=== PATIENT | female | born 1965 | race African-American/Black ===

== ENCOUNTER 2021-02-05 23:41 | Inpatient (IN) | payer OTHER ==
[~2021-02-05] VITALS: Ht 165.1 cm; Wt 117.9 kg
[~2021-02-05 23:41] MED LIST: ACETAMINOPHEN-1 EAC1 PO; AZITHROMYCIN 2250 MG PO; DOXYCYCLINE 10100 MG PO; FIORICET 50-321 EACH PO; FLONASE16 GM NS; KEFLEX500 MG PO; NAPROSYN500 MG PO; NOHOMEMEDICATIONS; NORCO 5-325 TA1 EACH PO; PROVENTIL IH; ULTRAM 50MG TAB50 MG PO; ZPAK PO
[2021-02-05 23:51] VITALS: BP 173/103
[2021-02-05] MEDS ORDERED: ALLOPURINOL 10100 M1 PO (23:57)
[2021-02-06 00:53] LABS: ABSOLUTE NEUTROPHILS 7.8 thou/uL (1.4-8.2); BASOPHILS 0.5 % (0.0-2.0); EOSINOPHILS 4.2 % (0.0-3.0); HEMATOCRIT 38.4 % (37.0-47.0); HEMOGLOBIN 12.3 gm/dL (12.0-15.0); LYMPHOCYTES 21.6 % (24.0-44.0); MCH 25.3 pg (26.0-34.0); MONOCYTES 8.2 % (1.0-8.0); PLATELET COUNT 281 thou/uL (150-400); POLYS 65.5 % (36.0-66.0); RBC 4.86 mil/uL (4.20-5.00); RDW 17.2 % (10.5-14.5)
[2021-02-06 01:09] LABS: ANION GAP 9 mmol/L (7-16); BUN 14 mg/dL (7-18); CALCIUM 8.9 mg/dL (8.5-10.1); CHLORIDE 107 mmol/L (98-107); CO2 25 mmol/L (21-32); CREATININE 1.2 mg/dL (0.6-1.0); GLUCOSE 145 mg/dL (74-106); POTASSIUM 3.3 mmol/L (3.5-5.1); SODIUM 141 mmol/L (136-145)
[2021-02-06 01:13] LABS: ALBUMIN 2.9 g/dL (3.4-5.0); DIRECT BILIRUBIN 0.8 mg/dL (<0.1-0.2); SGOT 208 U/L (15-37); SGPT 245 U/L (14-59); TOTAL BILIRUBIN 1.3 mg/dL (0.2-1.0); TOTAL PROTEIN 7.5 g/dL (6.4-8.2)
[2021-02-06 02:28] LABS: URINE BILIRUBIN NEGATIVE (Negative); URINE BLOOD NEGATIVE (Negative); URINE CLARITY CLEAR; URINE COLOR YELLOW; URINE GLUCOSE-RANDOM* NEGATIVE (Negative); URINE KETONES NEGATIVE (Negative); URINE NITRITE-REFLEX NEGATIVE (Negative); URINE PROTEIN (DIPSTICK) NEGATIVE (Negative); URINE SPECIFIC GRAVITY 1.025 (1.005-1.035)
[2021-02-06 02:33] LABS: URINE LEUKOCYTES-REFLEX 2+ (Negative)
[2021-02-06 02:49] LABS: LIPASE > 30000 U/L (73-393)
[2021-02-06 02:57] LABS: CASTS None Seen /LPF (None Seen); CRYSTALS None Seen /LPF (None Seen); MUCUS 0-3 Light strn/LPF (None Seen); SQUAMOUS >10 Many /LPF (0-3); URINE RBC None Seen /HPF (NONE SEEN)
[2021-02-06 05:34] LABS: CHOLESTEROL 160 mg/dL (<200); HDL CHOLESTEROL 44 mg/dL (>40); LDL CHOLESTEROL 98 mg/dL (<100); TC:HDL 3.6 Ratio (Not establshd); TRIGLYCERIDE 93 mg/dL (<150); VLDL 19 mg/dL (<40)
[2021-02-06 05:38] LABS: SERUM ASSESSMENT Clear
[2021-02-06 06:58] VITALS: BP 143/84
--- NOTE | 2021-02-06 07:18 | NUR ---
TOOK OVER CARE FROM EMERSON GONZÁLES AT THIS TIME
[2021-02-06 07:29] VITALS: BP 141/85
[2021-02-06 07:43] VITALS: BP 141/85
--- NOTE | 2021-02-06 07:49 | EKG ---
[place] [address] [facility] [place] [address] ELECTROCARDIOGRAM REPORT Name: FELIPE LAY Room #: 440-P ADM IN M.R.#: [id number] Admission: 02/06/21 Attend Phys: Brian Wolfe MD Discharge: Date of : 61 Report #: [id number] [facility] ED Test Date: 2021-02-06 Test Time: 01:00:09 Pat Name: FELIPE LAY Department: Room: 440 Gender: F Acid Painter: : 1965 Requested By: Brigette Stovall Order Number: [id number] MD: Romel Leong Measurements Intervals [place] Rate: 83 P: 50 CO: 130 QRS: 43 QRSD: 100 T: 5 QT: 426 QTc: 501 Interpretive Statements Sinus rhythm Borderline T wave abnormalities Borderline prolonged QT interval Baseline wander in lead(s) V2 Compared to ECG 09/29/2010 08:16:56 T-wave abnormality now present Electronically Signed On 02-06-2021 7:49:18 CDT by Romel Leong [email or web address] <ELECTRONICALLY SIGNED> By: Romel Leong MD, [facility] 02/06/21 0749 010 0100 Romel Leong MD, FAC /EPI
[2021-02-06 08:25] VITALS: BP 153/88
--- NOTE | 2021-02-06 09:40 | NUR ---
ASSESSMENT: CM REVIEWED CHART AND SPOKE WITH PATIENT AT THE BEDSIDE. PT IS ALERT AND ORIENTED X4. PT WAS ADMITTED DUE TO PANCREATITIS AND IS ON IV FLUIDS AND GI HAS BEEN CONSULTED. PT REPORTS THAT SHE LIVES IN AN APT ALONE. PT REPORTS HAVING ABOUT 7 STEPS WITH HANDRAILS AND ANOTHER 15 STEPS WITH HANDRAILS TO ENTER. PT REPORTS SHE IS NORMALLY FULLY INDEPENDENT WITH ADLS AND AMBULATION BUT DOES USE A CANE AT TIMES DUE TO GOUT. PT REPORTS THAT SHE HAS NOT HAD HH IN THE PAST OR POST ACUTE CARE STAY. CM DISCUSSED ROLE. PT DOES NOT ANTICIPATE HAVING ANY NEEDS FROM CM PRIOR TO DISCHARGE. CM WILL CONTINUE TO FOLLOW TO ASSIST NEEDED.
[2021-02-06 16:20] VITALS: BP 143/69
[2021-02-06 20:35] VITALS: BP 143/78
--- NOTE | 2021-02-06 23:56 | NUR ---
PATIENT A&OX4. NO COMPLAINTS OF PAIN. PATIENT DID COMPLAIN OF NAUSEA AND HEADACHE. MEDICATION WAS ALREADY GIVEN. ROOM DARK AND TOWEL PLACED ON FOREHEAD. PATIENT REMAINS NPO. UP INDEPENDENTLY TO RESTROOM. RESTING QUIETLY. WILL CONTINUE TO MONITOR.
[2021-02-07 01:24] LABS: GLYCOHEMOGLOBIN (HGB A1C) 6.4 % (4.8-5.6)
[2021-02-07 02:50] VITALS: BP 155/98
[2021-02-07 05:48] LABS: HEMATOCRIT 37.5 % (37.0-47.0); HEMOGLOBIN 12.1 gm/dL (12.0-15.0); MCH 25.9 pg (26.0-34.0); MCHC 32.2 g/dL (28.0-37.0); MCV 80.4 fL (80.0-100.0); RBC 4.66 mil/uL (4.20-5.00); RDW 17.8 % (10.5-14.5); WBC 19.3 thou/uL (4.0-11.0)
[2021-02-07 06:32] LABS: ALBUMIN 2.9 g/dL (3.4-5.0); CALCIUM 8.7 mg/dL (8.5-10.1); MAGNESIUM 2.1 mg/dL (1.8-2.4); POTASSIUM 4.4 mmol/L (3.5-5.1); TOTAL BILIRUBIN 1.1 mg/dL (0.2-1.0); TOTAL PROTEIN 7.4 g/dL (6.4-8.2)
[2021-02-07 09:13] VITALS: BP 156/100
[2021-02-07 10:08] LABS: HAV IgM AB (ANTI-HAV IgM) Negative (Negative); HEPATITIS B SURFACE AG Negative (Negative); HEPATITIS C VIRUS AB 0.1 (0.0-0.9)
--- NOTE | 2021-02-07 11:10 | NUR ---
ASSUMED PT CARE THIS AM. PT A&OX4, ABLE TO MAKE NEEDS KNOWN. PATIENT COMPLAINS OF A HEADACHE, GAVE TYLENOL PER EMAR. PATIENT HAS NO COMPLAINTS OF ABDOMINAL PAIN, NUMBNESS, OR TINGLING. CALL LIGHT IS WITHIN REACH. ON ROOM AIR.
--- NOTE | 2021-02-07 13:12 | NUR ---
ON-GOING ASSESSMENT: CM REVIEWED CHART AND SPOKE WITH ATTENDING. PT IS TO HAVE LAP MYRIAM WITH CHOLANGIOGRAM TOMORROW. CM WILL CONTINUE TO FOLLOW TO ASSIST NEEDED.
[2021-02-07 17:32] VITALS: BP 135/75
[2021-02-07 20:02] VITALS: BP 136/63
--- NOTE | 2021-02-07 23:43 | NUR ---
PATIENT A&OX4. FEELING BETTER THAN YESTERDAY. NO COMPLAINTS OF HEADACHE OR NAUSEA. PROCEDURE SCHEDULED FOR 02/08/21. PATIENT NPO AFTER MIDNIGHT. UP AD KATHLEEN TO THE RESTROOM INDEPENDENTLY. WILL CONTINUE TO MONITOR.
[2021-02-08 04:36] VITALS: BP 128/64
[2021-02-08 07:50] VITALS: BP 156/83
--- NOTE | 2021-02-08 10:34 | NUR ---
ASSUMED PT CARE THIS AM. PT A&OX4 AND ABLE TO MAKE NEEDS KNOWN. PATIENT COMPLAINED OF ABDOMINAL PAIN, WAS SLEEPING UPON PAIN MEDICATION REASSESSMENT. NAUSEA RESOLVED WITH NAUSEA MEDICATION. IV REMAINS PATENT, FLUIDS INFUSING. PATIENT CONTINENT, UP IINDEPENDENTLY AROUND ROOM AND TO BATHROOM. PATIENT IS ON ROOM AIR. REPORTING NO NUMBNESS OR TINGLING. PATIENT REMAINS NPO FOR SURGERY TODAY. CALL LIGHT IS WITHIN REACH.
--- NOTE | 2021-02-08 13:29 | NUR ---
ON-GOING ASSESSMENT: CM REVIEWED CHART. PT IS GETTING LAP MYRIAM TODAY. POSSIBLE PLANS OF DISCHARGING TOMORROW. CM WILL CONTINUE TO FOLLOW TO ASSIST NEEDED.
[2021-02-08 17:45] VITALS: BP 166/106
[2021-02-08 18:03] VITALS: BP 149/96
[2021-02-08 19:13] VITALS: BP 144/103
[2021-02-08 21:42] VITALS: BP 158/106
--- NOTE | 2021-02-08 23:59 | NUR ---
PT A/O X4 AND IS UP WITH ASSISTANCE. 2 LITERS NC FOLLOWING SURGERY. LAP SITE TO RIGHT UPPER ABDOMINAL QUADRANT OPENED SLIGHTLY. NOTIFIED FARM EQUIPMENT ENGINEER SURGEON DR MADERA AND PLACED A STERI STRIP IN PLACE. PT C/O ABDOMINAL PAIN. PAIN MEDICATION GIVEN DIRECTED. FALL PRECAUTIONS IN PLACE, CALL LIGHT IS WITHIN REACH. PT GOT UP OUT OF BED AND WALKED AROUND THE ROOM FOR A FEW MOMENTS THIS NOC. SCD'S IN PLACE, CALL LIGHT IS WITHIN REACH. WILL CONTINUE TO MONITOR.
[2021-02-09 03:41] VITALS: BP 161/102
[2021-02-09 04:56] VITALS: BP 140/81
[2021-02-09 06:06] LABS: ALBUMIN 2.8 g/dL (3.4-5.0); CALCIUM 8.6 mg/dL (8.5-10.1); POTASSIUM 3.6 mmol/L (3.5-5.1); TOTAL BILIRUBIN 0.7 mg/dL (0.2-1.0); TOTAL PROTEIN 7.5 g/dL (6.4-8.2)
[2021-02-09 07:10] VITALS: BP 146/88
[2021-02-09] MEDS ORDERED: NORVASC10 MG PO (09:04)
[2021-02-09] MEDS ORDERED: HYDROCODON-ACE1 EAC7 PO (09:04)
[2021-02-09] MEDS ORDERED: TRAMADOL 50 MG50 MG PO (09:27)
--- NOTE | 2021-02-09 14:22 | NUR ---
ASSUMED CARE OF PT AT 0700 THIS MORNING. PT HAS MIGUEL AAD ETTA BAIRES ON 02/08. PT C/O OF ESCALANTE WHILE RECEIVING REPORT. PT WAS GIVEN TYLENOL AND EASED PAIN. PT IS A/OX4, SKIN INTACT WITH NO TENTING. LAP SITES X5 WITH UPPER ONE STERI-STRIPPED WITH SMALL DEHISIENCE. PT IS INDEP AMBUKLATION. ASSESSMENTS CHARTED AND OTHERWISE UNREMARKABLE. IV IN RT FA WITH NS AT 75ML/HR. MEDS AND TX GIVEN NEEDED AND SCHEDULED. WILL MONITOR AND NOTE ANY CHANGES.
[2021-02-09 15:55] VITALS: BP 144/95
[2021-02-09 19:43] VITALS: BP 144/76
--- NOTE | 2021-02-10 02:57 | NUR ---
PT IS A/O X4 AND IS UP WITH SBA. 2 LITERS O2 NC. IS SOA WITH EXERTION. C/O ABDOMINAL PAIN. PRN PAIN MEDICATION GIVEN DIRECTED. PT IS PLEASANT AND COOPERATIVE. CALLS OUT APPROPRIATELY FOR ASSISTANCE. PT IS PROGRESSING TOWARDS PLAN OF CARE DC GOALS. NO C/O HEADACHE THIS SHIFT AND STATES TRAMADOL IS WORKING MUCH BETTER FOR HER THAN THE HYDROCODONE THAT WAS PREVIOUSLY PRESCRIBED. FALL PRECAUTIONS IN PLACE, CALL LIGHT IS WITHIN REACH. WILL CONTINUE TO MONITOR.
[2021-02-10 06:49] VITALS: BP 169/105
--- NOTE | 2021-02-10 09:45 | NUR ---
Assumed care of pt at 0700. Pt a&ox4. Incisions c/d/i. Pain controlled. Possible d/c to home today. Call light within reach. Will continue to monitor.
[2021-02-10 10:24] VITALS: BP 169/105
--- NOTE | 2021-02-12 18:06 | PATH ---
[facility] [address] [place] [address] PATHOLOGY RPT PROCEDURE Name: FELIPE LAY Room #: 440-P [facility] IN M.R.#: [id number] Admission: 02/06/21 Date of : 61 Discharge: 02/10/21 Report #: [id number] Path Case #: [id number] [facility] Accession Number: [id number] . 01 Material submitted: . gallbladder - GALLBLADDER . 01 Clinical history: . LAPARSCOIC CHOLECYSTECTOMY . 02 Diagnosis: Gallbladder, cholecystectomy: - Moderate chronic cholecystitis. - Cholelithiasis. - Incidental lymph node. (IUV/db; 02/12/2021) LBQ 02/12/2021 1532 Local . 02 Electronically signed: . Nirmala Clarke MD, Pathologist NPI- [id number] . 01 Gross description: . Fixative: Formalin Labeled: Gallbladder Specimen received: An intact gallbladder Dimensions: 8.4 x 2.6 x 2.0 cm Serosa: Chau-holly and focally hemorrhagic Lymph node: Probable lymph node identified measuring 1.0 x 0.9 x 0.8 cm. The specimen is bisected to reveal chau-brown cut surfaces. Mucosa: Chau, bile-stained, focally effaced and focally trabeculated Average wall thickness: 0.2 cm Calculi: Multiple yellow, irregular friable stones measuring 6.5 x 3.5 x 0.9 cm in aggregate Abnormalities: None identified A1: Probable lymph node (bisected) and cystic duct margin. A2: Quality Assurance Lab Technician body and fundus (MRF; 02/09/2021) MFE/MFE 02/09/2021 1706 Local . 02 Pathologist provided ICD-10: K80.10 . 02 CPT . 921989 Specimen Comment: A courtesy copy of this report has been sent to [phone] Specimen Comment: [place] [address] PATHOLOGY RPT PROCEDURE Name: FELIPE LAY Room #: 440-P [facility] IN [facility].#: [id number] Admission: 02/06/21 Date of : 61 Discharge: 02/10/21 Report #: [id number] Path Case #: [id number] Performed at: 01 [facility] [place] [address], [place], [place] [id number] MD Zacarias Pemberton MD Phone: [phone] Performed at: [address] [id number] MD Nirmala Clarke MD Phone: [phone]
== END 2021-02-10 13:09 | disposition home or self-care (01) | DRG 417 ==
LOC: ER 23:41 → 4S 02-06 03:10 → EROBS 02-06 03:10 → 4S 02-06 07:48
PROVIDERS: Emergency Medicine; Nurse Practitioner Family; ADMIT Hospitalist; ATTEND Hospitalist
DX: K80.63 Calculus of gallbladder and bile duct with acute cholecystitis with obstruction (principal); K85.10 Biliary acute pancreatitis without necrosis or infection; R65.11 Systemic inflammatory response syndrome (SIRS) of non-infectious origin with acute organ dysfunction; N39.0 Urinary tract infection, site not specified; Z68.41 Body mass index [BMI] 40.0-44.9, adult; M10.9 Gout, unspecified; J45.909 Unspecified asthma, uncomplicated; R74.01 Elevation of levels of liver transaminase levels; F32.9 Major depressive disorder, single episode, unspecified; K52.9 Noninfective gastroenteritis and colitis, unspecified; R73.9 Hyperglycemia, unspecified; K42.9 Umbilical hernia without obstruction or gangrene; I10 Essential (primary) hypertension; E66.9 Obesity, unspecified; Z20.822 Contact with and (suspected) exposure to COVID-19; Z79.899 Other long term (current) drug therapy; Z90.710 Acquired absence of both cervix and uterus; Z88.2 Allergy status to sulfonamides; Z88.0 Allergy status to penicillin
CPT/HCPCS: 10102; 50010; 50101; 50411; 50555; 51489; 52265; 52266; 53307; 53310; 53312; 54022; 54118; 55245; 56462; 56525; 56526; 56674; 58534; 58574; 58910; 62110; 62900; 70005